=== PATIENT | female | born 1955 | race Caucasian/White ===

== ENCOUNTER 2024-02-16 17:13 | Emergency (ER) | payer OTHER, SELFPAY ==
[2024-02-16 17:30] VITALS: BP 123/66
[2024-02-16 17:59] LABS: % Basophils 0.5 % (0-2); % Eosinophils 1.4 % (0-6); % Immature Granulocytes 0.3 % (0-0.5); % Lymphocytes 13.3 % (20.5-51.1); % Monocytes 5.4 % (1.7-9.3); % Neutrophils 79.1 % (42.2-75.2); Absolute Eosinophils 0.1 10^3/uL (0-0.7); Absolute Monocytes 0.4 10^3/uL (0.1-0.6); Absolute Neutrophils 6.1 10^3/uL (1.4-6.5); Hematocrit 39.4 % (37.0-47.0); Hemoglobin 13.2 g/dL (12.0-16.0); Mean Corp Hgb Conc. 33.5 g/dL (33.0-37.0); Mean Corpuscular Hgb 29.9 pg (27.0-31.0); Mean Corpuscular Volume 89.3 fL (81.0-99.0); Mean Platelet Volume 10.8 fL (7.4-10.4); Nucleated Red Blood Cells % 0 %; Platelet Count 160 10^3/uL (130-400); Red Blood Cell Count 4.41 10^6/uL (4.20-5.40); Red Cell Dist. Width 13.3 % (11.5-14.5); White Blood Cell Count 7.8 10^3/uL (4.8-10.8)
[2024-02-16 18:14] LABS: ALT (SGPT) 18 U/L (0-35); AST (SGOT) 25 U/L (14-36); Albumin 4.1 g/dl (3.5-5.0); Alkaline Phosphatase 77 U/L (38-126); Blood Urea Nitrogen 17 mg/dl (7-17); Calcium 9.4 mg/dl (8.4-10.2); Carbon Dioxide 25 mmol/L (22-30); Chloride 106 mmol/L (98-107); Glucose 106 mg/dl (70-99); Potassium 4.5 mmol/L (3.5-5.1); Sodium 139 mmol/L (135-145); Total Bilirubin 1.5 mg/dl (0.2-1.3); Total Protein 6.5 g/dl (6.3-8.2); eGFR > 60.00
[2024-02-16 21:22] VITALS: BP 127/60; BP 130/70; BP 136/86; PULSE 60; PULSE 63; PULSE 75
--- NOTE | 2024-02-16 21:31 | ED.GENMED ---
History of Present Illness
General
Chief Complaint: Fainting/Passed Out
Source: patient
Exam Limitations: none
Time Seen by Provider: 02/16/24 21:02
Travel History
Have you had any contact with someone who has COVID-19?: No
Do you have any symptoms of coronavirus? Fever > 100 degrees, chills, cough, shortness of breath, sore throat, loss of taste or smell, muscle aches, or headache?: No
History of Present Illness
History of Present Illness:
This is a 68 year old female that comes in with c/o syncope. States that she was sick about 1.5 weeks ago for about 10 days with a Upper respiratory virus. States that this cleared up . Today she was feeling good and she went to the grocery store.
States that she started to feel lightheaded so she went home and laid down. States that she got up to the BR and she awoke on the floor. States that she was nauseated and has a headache on the top of her head. States that if she moves her head up or
down she gets dizzy. States that the dizziness is better. Denies any fever, chills, chest pain, SOB, abd pain, vomiting, diarrhea, urinary burninig.
Past History
Past History
ED Past Medical History: Cancer (colon, rectal) and HTN
ED Past Surgical History: Bowel resection (Colectomy) and Gynecological (Hysterectomy)
Social History
Tobacco: Former smoker
Alcohol: None
Drug: None
Personal:
Living: alone
Employment: Employed
Review of Systems
Review of Systems
All Other Systems: ROS reviewed and negative except as documented in HPI and ROS
Constitutional: Reports no symptoms; Denies fever or chills
EENT: Reports no symptoms
Respiratory: Reports no symptoms; Denies cough or trouble breathing
Cardiac: Reports no symptoms; Denies chest pain
ABD/GI: Reports nausea; Denies abdominal pain, vomiting or diarrhea
: Reports no symptoms; Denies dysuria, frequency or urgency
Musculoskeletal: Reports no symptoms
Skin: Reports no symptoms
Neurological: Reports dizzy and headache
Psychiatric: Reports no symptoms
Phy Exam
General Physical Exam
General Presentation: well appearing and no apparent distress
General age: appears stated age
General Skin: warm and dry
General Habitus: normal
General Mental: alert
General Hydration: appears well hydrated
ENT Exam
ENT Exam: TM's normal, pharynx normal and neck supple
Eye Exam
Eye Exam: EOMI
Cardiovascular Exam
Cardiovascular Exam: regular rate/rhythm, no edema and normal peripheral pulses
Pulmonary Exam
Pulmonary Exam: lungs clear, no respiratory distress, no rales, chest non tender, no crackles, no rhonchi, no wheezing and no cough
Gastrointestinal Exam
Gastrointestinal Exam: normal bowel sounds, non tender, soft, no organomegaly, no pulsatile mass and non distended
NIH Stroke Score
Level of Consciousness: 0 - Alert
LOC questions: 0-Answers both correctly
LOC Commands: 0-Performs both correctly
Best Gaze: 0-Normal
Visual [place]: 0=Normal, no visual loss
Facial palsy: 0=Normal, symmetrical
Motor - Right Arm: 0=No drift 10 seconds
Motor - Left Arm: 0=No drift 10 seconds
Motor - Right Le-No drift 5 seconds
Motor - Left Le-No drift 5 seconds
Limb Ataxia: 0-Absent
Sensation: 0-Normal
Best Language: 0-No aphasia
Dysarthria: 0-Normal
Extinction and Inattention: 0-No abnormality
Total Score:: 0
Musculoskeletal Exam
Musculoskeletal Exam: full ROM and no edema
Skin Exam
Skin Exam: normal color, warm/dry, no rash and no petechia
Psychiatric Exam
Psychiatric Exam: normal mood/affect
Course
Orders/Labs/Results
Orders:
Orders
02/16/24
CT Head W/o Iv Contrast Urgent
Reason For Exam: dizziness
02/16/24 17:35
Electrocardiogram (*1) Urgent
Reason for Study: Chest Pain
EKG- Treatment ONCE
02/16/24 17:48
Complete Blood Count/With Diff Urgent
Comprehensive Metabolic Panel Urgent
02/16/24 21:31
Orthostatic VS- Treatment ONCE
02/16/24 21:52
Troponin I Urgent
02/17/24 00:42
0.9% Sodium Chloride 1000 ml [Nss] 1,000 ml IV BOLUS
02/17/24 02:08
Meclizine [Antivert] 50 mg PO NOW STA
Abnormal Lab Results
02/16/24
17:48
MPV 10.8 H fL
(7.4-10.4)
Absolute Lymphs (auto) 1.0 L 10^3/uL
(1.2-3.4)
Neutrophils % 79.1 H %
(42.2-75.2)
Lymphocytes % 13.3 L %
(20.5-51.1)
Glucose 106 H mg/dl
(70-99)
Total Bilirubin 1.5 H mg/dl
(0.2-1.3)
02/16/24 17:48
02/16/24 17:48
Glucose nonfasting. Total tess slightly elevated.
Vital Signs
Initial and Last Documented VS:
Initial Vital Signs
Temp Pulse Resp BP Pulse Ox
97.9 F 62 16 123/66 98
02/16/24 17:30 02/16/24 17:30 02/16/24 17:30 02/16/24 17:30 02/16/24 17:30
Last Documented Vital Signs
Temp Pulse Resp BP Pulse Ox
97.9 F 62 16 111/71 97
02/16/24 17:30 02/16/24 17:30 02/16/24 17:30 02/17/24 02:00 02/17/24 02:53
Controller Instructor consulted with Physician
Controller Instructor consulted with physician?: Yes
Name of Physician Consulted: Dr Clark
MDM/Problems Addressed
Differential Diagnosis Includes:
Syncope, Hypotension
MDM/Problems Addressed:
This is a 68 year old female that comes in with c/o dizziness and syncope. States that she was feeling lightheaded so she laid down. States that she got up to use the BR and she awoke on the floor.
Will check labs. CT head, Orthostatic vitals and ECG.
Back into see patient. Patient noted at this time to have Nystagmus in both eyes. Will give IV fluids and then attempt to walk patient. If patient remains dizzy will admit.
Patient got up to the bathroom on her own. States that if she turns her head to the left her eyes have the Nystagmus. OTherwise she is feeling better. Will give patent Antivert and allow th fluid to continue.
Chronic conditions affecting care:
NA
Acute Exacerbation and/or Progression of Chronic Illness:
NA
*Radiology
Radiology exam reviewed: radiology read reviewed (CT head night hawk-No acute intracranial findings. Unchanged probable-left frontal convexity/anterior parafalcine partially calcified meningioma since 05/18/2023. Senescent changes. Vascular
calcifications. )
*Pulse Oximetry
Patient hypoxic: no
*EKG
Interpreted by ED Provider?: Yes
Heart Rate: 61
Rate: normal
Rhythm: sinus
[place]: left axis deviation
Interval: normal interval
QRS Pattern: normal QRS
Ischemia: no ischemia
*Airframe And Power Plant Mechanic Interpretation
Rate: Airframe [employer] Power [employer] Mechanic- N/A
*Critical Care Note
Total Time (30-74mins, 75-104mins- exclusive of procedures): Not Applicable
ED Attending Note
-
Portions of this chart may have been created with voice recognition software.� Occasional wrong word or��sound alike� substitutions may have occurred due to the inherent limitations of voice recognition software.
Discharge Plan
Departure
Patient Disposition: Home (Routine Discharge)
Date of Disposition: 02/17/24
Time of Disposition: 02:39
Patient with high blood pressure during this ER visit?: No
Condition: Good
Covid-19: Not Applicable
Discharge Problem:
Dizziness, Syncope
Instructions: Syncope (Fainting) (DC), Dizziness, Adult ED
Prescriptions:
New
meclizine [Antivert] 50 mg tablet
50 mg PO BID PRN (Reason: dizziness) Qty: 14 0RF
Referrals:
Ailyn Mojica MD [Family Provider] - Follow up in 2-3 days
Activity Restrictions/Additional Instructions:
As discussed, your blood work is normal along with your CT of the head. This may be related to Vertigo. You have been given Antivert here and a prescription has been sent to your Pharmacy. Please take this for the next 1-2 days. Please increase your
water intake to 8-8oz glasses daily. Follow up with the family doctor in the next 2-3 days for recheck. IF YOU HAVE INCREASED DIZZINESS, HEADACHE OR YOU HAVE ANY OTHER CONCERNS PLEASE RETURN TO THE EMERGENCY ROOM.
Interventions
Interventions:
*Risk Screen - Suicide Last Done: 02/16/24 17:30
*General Assessment Last Done: 02/16/24 17:30
*Neglect/Abuse Screening Last Done: 02/16/24 17:30
ED- Fall Risk Assessment Last Done: 02/16/24 21:20
*ED COVID-19 Vaccine History Last Done: 02/17/24 03:04
*Nursing Disposition Last Done: 02/17/24 03:04
ED- Cardiac Assessment Last Done: 02/16/24 21:20
ED- Neurological Assessment Last Done: 02/16/24 21:20
Discharge Date and Time
Discharge Date/Time: 02/17/24 03:05
Print Language: ANDORRAN
[2024-02-16 22:00] VITALS: BP 113/70
[2024-02-16 22:25] LABS: Troponin I < 0.012 ng/ml
[2024-02-16 23:00] VITALS: BP 103/57
[2024-02-17] VITALS: BP 107/71
[2024-02-17] MEDS: NSS 1000 IV (00:46)
[2024-02-17 01:00] VITALS: BP 112/70
[2024-02-17 02:00] VITALS: BP 111/71
[2024-02-17] MEDS: ANTIVERT 50 MG PO (02:17)
== END 2024-02-17 03:05 | disposition home or self-care (01) ==
LOC: EMR 17:13
PROVIDERS: Clinical Nurse Specialist Family Health; Emergency Medicine; EMERGENCY PHYSICIAN Emergency Medicine; FAMILY PHYSICIAN Family Medicine
DX: R55 Syncope and collapse (principal); R42 Dizziness and giddiness; R51.9 Headache, unspecified; R11.0 Nausea; W18.30XA Fall on same level, unspecified, initial encounter; Y93.E8 Activity, other personal hygiene; I10 Essential (primary) hypertension; Z87.891 Personal history of nicotine dependence; Z85.048 Personal history of other malignant neoplasm of rectum, rectosigmoid junction, and anus; Z98.0 Intestinal bypass and anastomosis status; Z88.5 Allergy status to narcotic agent; Z91.018 Allergy to other foods
CPT/HCPCS: 99284; 96360; 70450; 80053; 84484; 85025; 93005